=== PATIENT | female | born 1995 | race African-American/Black ===

== ENCOUNTER 2019-05-17 15:08 | Emergency (ER) | payer BC, SELFPAY ==
[2019-05-17 16:11] LABS: #Eosinphils 0.1 thou/uL (0.0-0.7); #Lymphocytes 2.4 thou/uL (1.20-3.40); #Monocytes 0.5 thou/uL (0.11-0.59); #Neutrophils 3.8 thou/uL (1.40-6.50); %Basophils 0.7 % (0.0-1.0); %Eosinophils 0.9 % (0.0-10.0); %Lymphocytes 35.6 % (21.0-51.0); %Neutrophils 55.8 % (42.0-75.0); Hemoglobin 12.7 g/dL (12.0-16.0); Mean Corpuscular HGB CONC 34.6 g/dL (32.0-36.0); Mean Corpuscular Hemoglobin 32.6 pg (27.0-31.0); Mean Platelet Volume 7.3 fL (7.4-10.4); Platelet Count 199 thou/uL (130-400); RBC Distribution Width 10.7 % (11.5-14.5); White Blood Cell (WBC) Count 6.9 thou/uL (4.8-10.8)
[2019-05-17 16:32] LABS: ALT (SGPT) 7 U/L (8-55); AST (SGOT) 15 U/L (5-34); Alkaline Phosphatase 42 U/L (40-150); Anion Gap 11 mmol/L (10-20); BUN (Urea Nitrogen) 8 mg/dL (7.0-18.7); Bilirubin, Total 0.4 mg/dL (0.2-1.2); Calc. Creatinine Clearance 0 mL/min (70-130); Calcium 9.4 mg/dL (7.8-10.44); Carbon Dioxide 22 mmol/L (22-29); Chloride 104 mmol/L (98-107); Estimated GFR-MDRD Greater than 90; Globulin 2.7 g/dL (2.4-3.5); Lipase 21 U/L (8-78); Potassium 3.8 mmol/L (3.5-5.1); Protein, Total 6.7 g/dL (6.0-8.3); Sodium 133 mmol/L (136-145)
[2019-05-17 16:35] LABS: Glucose 58 mg/dL (70-105)
[2019-05-17 17:13] LABS: Bilirubin Negative (Negative); Blood, Urine Moderate (Negative); Glucose, Urine (Dipstick) Negative (Negative); Leukocyte Small (Negative); Nitrite Positive (Negative); Protein, Urine (Dipstick) 30 mg/dL (Neg-Trace)
[2019-05-17 17:21] LABS: Clarity Hazy (Clear)
[2019-05-17 17:23] LABS: Pregnancy Test - Urine (BHCG) POSITIVE (Negative)
[2019-05-17 17:24] LABS: Pregu Control Background? CLEAR/WHITE (CLR/WHITE); Pregu Control Bar Appear? YES (CONTROL BAR); Specific Gravity 1.024 (1.002-1.036)
[2019-05-17 17:37] LABS: Bacteria/HPF 3+ HPF (None Seen); WBC/HPF Greater Than 50 HPF (0-3)
[2019-05-17] MEDS ORDERED: Azithromycin 250 MG TAB ONE (20:21)
[2019-05-17] MEDS ORDERED: cefTRIAXone\\ROCEPHIN 250 MG VIAL ONE (20:21)
[2019-05-17] MEDS ORDERED: Lidocaine 1% PF 5 ML VIAL ONE (20:21)
[2019-05-17] MEDS ORDERED: Ondansetron ODT 4 MG TAB ONE (20:27)
--- NOTE | 2019-05-17 21:03 | ULT ---
EXAM: Pelvic ultrasound HISTORY: Positive test. Evaluate for intrauterine versus ectopic . Abdominal pain. COMPARISON: None TECHNIQUE: Multiple grayscale and color Doppler images were obtained in a transabdominal pelvic ultra sound. Spectral analysis of the Doppler waveforms of the ovaries were performed. FINDINGS: UTERUS: There is an intrauterine gestational sac. This contains a yolk sac and pole. [place]-rump length: 1.35 cm which estimates gestational age at 7 weeks 4 days. A heart rate is detected at 162 bpm. No evidence of subchorionic hemorrhage. No free fluid is seen in the pelvis. RIGHT OVARY: Normal flow without focal mass. LEFT OVARY: Normal flow without focal mass. IMPRESSION: Single live intrauterine with estimated age of 7 weeks 4 days.
[2019-05-20 00:29] LABS: Chlamydia by PCR Not Detected (NotDetected); GC by PCR Not Detected (NotDetected)
== END 2019-05-17 21:27 | disposition home or self-care (01) ==
LOC: ERS 15:08
DX: O23.41 Unspecified infection of urinary tract in pregnancy, first trimester (principal); O23.591 Infection of other part of genital tract in pregnancy, first trimester; Z3A.01 Less than 8 weeks gestation of pregnancy
CPT/HCPCS: 36415; 36416; 76856; 80053; 81003; 81015; 81025; 83690; 84702; 85025; 87480; 87491; 87510; 87591; 87660; 93976; 96372; J0696; J2001; Q0162

== ENCOUNTER 2019-12-31 08:56 | Inpatient (IN) | payer OTHER ==
[2020-01-02] MEDS ORDERED: NS / Oxytocin 40 units/1000ml 1,000 ML IV PRN (07:19)
[2020-01-02] MEDS ORDERED: Docusate 100 MG CAP PO PRN (07:19)
[2020-01-02] MEDS ORDERED: HYDROcodone/Acetaminophen 5/325 mg Tablet PO PRN ×2 (07:19)
[2020-01-02] MEDS ORDERED: Ibuprofen 800 MG TAB PO PRN (07:19)
[2020-01-02] MEDS ORDERED: NS w/ Oxytocin 10 units 500 ML IV SCH ×2 (07:19)
[2020-01-02] MEDS ORDERED: Diphenoxylate HCl/Atropine Tablet PO PRN ×2 (07:19)
[2020-01-02] MEDS ORDERED: Ondansetron PF 4 MG/2 ML Vial IVP PRN ×3 (07:19→13:26)
[2020-01-02] MEDS ORDERED: Acetaminophen 500 MG TAB PO PRN (07:19)
[2020-01-02] MEDS ORDERED: Promethazine HCl 25 MG/ML VIAL IM PRN ×2 (07:19→11:11)
[2020-01-02] MEDS ORDERED: Butorphanol Tartrate 1 MG/ML VIAL SLOW IVP PRN (07:19)
[2020-01-02] MEDS ORDERED: Misoprostol 200 MCG TAB PR PRN (07:19)
[2020-01-02] MEDS ORDERED: hydrALAZINE 20 MG/ML VIAL SLOW IVP PRN ×2 (07:19→13:26)
[2020-01-02] MEDS ORDERED: Lidocaine 1% (PF) 30 ML VIAL SC PRN (07:19)
[2020-01-02] MEDS: Lactated Ringer's 1,000 ML IV SCH ×3 (07:30→12:13)
[2020-01-02 07:35] LABS: Hemoglobin 10.6 g/dL (12.0-16.0); Mean Corpuscular HGB CONC 34.4 g/dL (32.0-36.0); Mean Corpuscular Hemoglobin 31.3 pg (27.0-31.0); Mean Corpuscular Volume 90.9 fL (78.0-98.0); Mean Platelet Volume 8.9 fL (7.4-10.4); Platelet Count 209 thou/uL (130-400); RBC Distribution Width 12.4 % (11.5-14.5); Red Blood Cell (RBC) Count 3.38 mill/uL (4.20-5.40)
[2020-01-02 08:07] LABS: Syphilis Antibody Nonreactive (Nonreactive); Syphilis Antibody Index 0.04 S/CO (<1.00 Non-Reactive)
[2020-01-02 08:08] LABS: HBSAg Index 0.15 S/CO (0-0.99); Hep B Surf Ag Non-Reactive S/CO (NonReactive)
[2020-01-02 08:49] VITALS: BMI 37.8
[2020-01-02] MEDS ORDERED: Fentanyl 4 mcg/Bup 0.1% Cadd 100 ML ONE (09:43)
[2020-01-02] MEDS ORDERED: Acetaminophen 325 MG TAB PO PRN (11:11)
[2020-01-02] MEDS ORDERED: EPHEDRINE 25 MG/5 ML SYRINGE SLOW IVP PRN (11:11)
[2020-01-02] MEDS ORDERED: Naloxone HCl 0.4 mg/ml Vial IVP PRN ×2 (11:11)
[2020-01-02] MEDS ORDERED: Lactated Ringer's 500 ML IV PRN (11:11)
[2020-01-02] MEDS ORDERED: diphenhydrAMINE 50 MG/ML VIAL IVP PRN (11:11)
[2020-01-02] MEDS ORDERED: Fentanyl 4 mcg/Bupivacaine 0.1% Cassette 100 ML EPIDURAL SCH (11:15)
[2020-01-02] MEDS ORDERED: Communication Order-Pharmacy FS SCH (11:15)
[2020-01-02] MEDS ORDERED: Acetaminophen/Codeine 30-300mg Tablet PO PRN (13:26)
[2020-01-02] MEDS ORDERED: Benzocaine-Menthol 82.5 ML CAN TOP PRN (13:26)
[2020-01-02] MEDS ORDERED: Adacel (T-DAP) 0.5 ML SYRINGE IM ONE (13:26)
[2020-01-02] MEDS ORDERED: Zolpidem Tartrate 5 MG TAB PO PRN (13:26)
[2020-01-02] MEDS ORDERED: Preparation H Ointment 28 GM TUBE PR PRN (13:26)
[2020-01-02] MEDS ORDERED: diphenhydrAMINE 25 MG CAP PO PRN (13:26)
[2020-01-02] MEDS ORDERED: Lanolin Ointment 7 GM TUBE TOP PRN (13:26)
[2020-01-02] MEDS ORDERED: Bisacodyl 10 MG SUPP PR PRN (13:26)
[2020-01-02] MEDS ORDERED: Milk Of Magnesia 30 ML UDCUP PO PRN (13:26)
[2020-01-02] MEDS ORDERED: Misoprostol 200 MCG TAB VAG PRN (13:26)
[2020-01-02] MEDS ORDERED: NS / Oxytocin 40 units/1000ml 1,000 ML IV SCH (13:30)
[2020-01-02] MEDS: Ibuprofen 800 MG TAB PO SCH ×2 (18:11→19:53)
[2020-01-02] MEDS: Ferrous Sulfate 325 MG TAB PO SCH (18:12)
[2020-01-02] MEDS: Docusate Calcium (SURFAK) 240 MG CAP PO SCH (19:54)
[2020-01-03] MEDS: Ibuprofen 800 MG TAB PO SCH ×3 (05:26→21:28)
[2020-01-03] MEDS: Prenatal Vitamin 1 TAB PO SCH (09:05)
[2020-01-03] MEDS: Ferrous Sulfate 325 MG TAB PO SCH ×2 (09:05→18:26)
[2020-01-03] MEDS: Docusate Calcium (SURFAK) 240 MG CAP PO SCH ×2 (09:05→21:28)
[2020-01-03] MEDS: Acetaminophen/Codeine 30-300mg Tablet PO PRN ×2 (13:27→17:42)
[2020-01-04] MEDS: Ibuprofen 800 MG TAB PO SCH (05:33)
[2020-01-04] MEDS: Docusate Calcium (SURFAK) 240 MG CAP PO SCH (08:19)
[2020-01-04] MEDS: Prenatal Vitamin 1 TAB PO SCH (08:19)
[2020-01-04] MEDS: Ferrous Sulfate 325 MG TAB PO SCH (08:20)
[2020-01-04 08:26] VITALS: BP 114/71; TEMP 98.5
== END 2020-01-04 14:30 | disposition home or self-care (01) | DRG 807 ==
LOC: EDSTATUS 11:47 → L&D 01-02 06:35 → 3SW 01-02 17:37
PROVIDERS: ADMIT Obstetrics & Gynecology; ATTEND Obstetrics & Gynecology
PROC: 10E0XZZ Delivery of Products of Conception, External Approach (ICD-10-PCS; principal; 2020-01-02)
PROC: 10907ZC Drainage of Amniotic Fluid, Therapeutic from Products of Conception, Via Natural or Artificial Opening (ICD-10-PCS; 2020-01-02)
PROC: 3E033VJ Introduction of Other Hormone into Peripheral Vein, Percutaneous Approach (ICD-10-PCS; 2020-01-02)
DX: O48.0 Post-term pregnancy (principal); Z37.0 Single live birth; Z3A.40 40 weeks gestation of pregnancy; O70.0 First degree perineal laceration during delivery; O99.013 Anemia complicating pregnancy, third trimester; D64.9 Anemia, unspecified
CPT/HCPCS: 36415; 51702; 85027; 86780; 86850; 86900; 86901; 87340

== ENCOUNTER 2021-03-27 10:10 | Emergency (ER) | payer OTHER | END 2021-03-27 10:15 | disposition left against medical advice (07) | LOC: ERS 10:10 | DX: Z53.21 Procedure and treatment not carried out due to patient leaving prior to being seen by health care provider (principal) ==

== ENCOUNTER 2023-12-23 12:25 | Outpatient (CLI) | payer OTHER | END 2023-12-23 12:26 | disposition home or self-care (01) | LOC: BICULT 12:25 | PROVIDERS: ATTEND Family Medicine | DX: O09.892 Supervision of other high risk pregnancies, second trimester (principal); Z3A.25 25 weeks gestation of pregnancy | CPT/HCPCS: 76805 ==